=== PATIENT | female | born 1970 | race Caucasian/White ===

== ENCOUNTER 2021-08-11 03:37 | Emergency (ER) | payer OTHER ==
[2021-08-11 04:08] VITALS: TEMP 98.4; BMI 28.8
[2021-08-11] MEDS ORDERED: diphenhydrAMINE HCL 25 MG CAPSULE (FP) PO ONE ×2 (04:38→04:46)
[2021-08-11] MEDS ORDERED: FAMOTIDINE 20 MG TABLET PO ONE (04:38)
[2021-08-11] MEDS ORDERED: predniSONE 20 MG TABLET (UD) PO ONE ×2 (04:42→04:44)
[2021-08-11] MEDS ORDERED: predniSONE 20 MG TABLET (UD) ONE (04:46)
[2021-08-11] MEDS ORDERED: FAMOTIDINE 20 MG TABLET ONE (04:46)
[2021-08-11] MEDS ORDERED: DEXAMETHASONE 4 MG TABLET (FP) PO ONE (06:05)
[2021-08-11 08:01] VITALS: BP 131/91; PULSE 71
== END 2021-08-11 07:50 | disposition home or self-care (01) ==
LOC: JER 03:37
DX: T78.40XA Allergy, unspecified, initial encounter (principal)
CPT/HCPCS: 99283-25